=== PATIENT | female | born 1975 | race Caucasian/White ===

== ENCOUNTER 2018-10-31 09:33 | Emergency (ER) | payer SELFPAY ==
[~2018-10-31] VITALS: Ht 162.6 cm; Wt 77.3 kg
[2018-10-31 09:40] VITALS: Ht 162.6 cm; Wt 77.3 kg
[2018-10-31] MEDS ORDERED: ADIPEX-P37.5 M1 PO (09:42)
[2018-10-31] MEDS ORDERED: XANAX1 MG PO (10:55)
[2018-10-31 14:16] VITALS: BP 138/85
== END 2018-10-31 14:18 | disposition home or self-care (01) ==
LOC: D.ER 09:33
DX: F43.0 Acute stress reaction (principal); F43.23 Adjustment disorder with mixed anxiety and depressed mood; F45.8 Other somatoform disorders